=== PATIENT | female | born 1980 | race American Indian/Alaskan Native ===

== ENCOUNTER 2020-05-21 14:35 | Emergency (ER) | payer MEDICAID ==
[2020-05-21 15:37] LABS: Calcium 8.4 mg/dL (8.4-10.2)
[2020-05-21 15:38] LABS: Mean Corpuscular HGB Conc 33 % (30-34); Mean Corpuscular Volume 82 fl (79-97); Platelet Count 359 K/mm3 (140-440); Red Blood Count 1.57 M/mm3 (3.65-5.03); Red Cell Distribution Width 16.5 % (13.2-15.2)
[2020-05-21 15:49] LABS: Hematocrit 12.9 % (30.3-42.9); Hemoglobin 4.2 gm/dl (10.1-14.3)
[2020-05-21] MEDS ORDERED: SODIUM CHLORIDE 0.9% 1000 ML 2,000 ML ONE (20:23)
[2020-05-21] MEDS ORDERED: SODIUM CHLORIDE 0.9% 1000 ML 1,000 ML IV ONE ×2 (20:28)
[2020-05-21] MEDS ORDERED: SODIUM CHLORIDE 0.9% 500 ML 500 ML IV ONE (20:29)
--- NOTE | 2020-05-21 20:36 | Emergency Department Report ---
HPI - General Chief Complaint: Weakness Time Seen by Provider: 05/21/20 20:20 - HPI HPI: Room 7 The patient is a 39-year-old female presenting with a chief complaint of symptomatic anemia. The patient had liposuction performed 3 days ago at a surgical center by the plastic surgeon Dr. Gonzales. The patient states she has been feeling tired and dizzy since the surgery. Patient has 2 RADHA drains that have been draining blood. The patient and significant other states that the drains have each been changed approximate 3-4 times daily. There is been no history of fever. Patient followed up with her plastic surgeon yesterday and had blood drawn. The patient received a call today informing her that her H&H were low and that she needs to go to the nearest emergency department. ED Past Medical Hx - Past Medical History Previous Medical History?: Yes Additional medical history: lupus. RA. fibromyalgia - Surgical History Additional Surgical History: x 2. laproscopy (uterine). Liposuction - Family History Family history: no significant - Social History Smoking Status: Never Smoker Substance Use Type: None - Medications Home Medications: Home Medications Medication Instructions Recorded Confirmed Last Taken Type Albuterol Mdi (or & Nicu Only) 2 puff IH QID PRN #1 inhalation 03/20/16 Unknown Rx [ProAir HFA Inhaler] Fluticasone [Flonase] 1 spray NS QDAY #1 bottle 03/20/16 Unknown Rx guaiFENesin/CODEINE [Robitussin AC] 5 ml PO Q6H PRN #100 oral.liqd 03/20/16 Unknown Rx predniSONE [Deltasone] 20 mg PO QDAY #5 tab 03/20/16 Unknown Rx ED Review of Systems ROS: Stated complaint: LOW BLOOD SUGAR Other details as noted in HPI Constitutional: weakness. denies: fever Respiratory: no symptoms reported Endocrine: no symptoms reported Neurological: other (Dizziness) Physical Exam - Physical Exam Vital Signs: Vital Signs 05/21/20 20:20 Temperature 98.3 F Pulse Rate 132 H Respiratory 26 H Rate Blood Pressure 117/62 [Left] O2 Sat by Pulse 100 Oximetry Physical Exam: GENERAL: The patient is well-developed well-nourished female lying on stretcher not appearing to be in acute distress. [] HEENT: Normocephalic. Atraumatic. Extraocular motions are intact. Patient has moist mucous membranes. NECK: Supple. Trachea midline CHEST/LUNGS: Clear to auscultation. There is no respiratory distress noted. HEART/CARDIOVASCULAR: Regular. There is no tachycardia. There is no gallop rub or murmur. ABDOMEN: Abdomen is soft, with appropriate postop tenderness. The long lower abdominal surgical site is intact with evidence of dried blood at the suture sites. There are 2 large RADHA drain tubes inserted in the suprapubic region with 2 smaller catheters medially. Patient has normal bowel sounds. There is no abdominal distention. SKIN: There is no rash. There is no edema. There is no diaphoresis. NEURO: The patient is awake, alert, and oriented. The patient is cooperative. The patient has normal speech MUSCULOSKELETAL: There is no evidence of acute injury. ED Course Vital Signs 05/21/20 20:20 Temperature 98.3 F Pulse Rate 132 H Respiratory 26 H Rate Blood Pressure 117/62 [Left] O2 Sat by Pulse 100 Oximetry - Consultations Consultation #1: 05/21/20 20:40 Dr. Gonzales called 05/21/20 20:52 Case discussed. Will accept patient in transfer to [facility] Consultation #2: 05/21/20 20:52 [facility] called ED Medical Decision Making - Lab Data Result diagrams: 05/21/20 14:56 05/21/20 14:56 Critical care attestation.: If time is entered above; I have spent that time in minutes in the direct care of this critically ill patient, excluding procedure time. ED Disposition Clinical Impression: Symptomatic anemia, Post-op bleeding Disposition: [id number]/TX-[id number] ANOTHER TYPE HLTHCARE Is pt being admited?: No Does the pt Need Aspirin: No Condition: Fair Referrals: PRIMARY CARE, [Primary Care Provider] - 3-5 Days Time of Disposition: 21:12 (Awaiting transport)
[2020-05-22 05:14] VITALS: BP 156/83
== END 2020-05-22 05:28 | disposition other institution (70) ==
LOC: ED 14:35
DX: L76.22 Postprocedural hemorrhage of skin and subcutaneous tissue following other procedure (principal); D64.9 Anemia, unspecified; Z98.890 Other specified postprocedural states; Z79.899 Other long term (current) drug therapy; Z91.018 Allergy to other foods
CPT/HCPCS: 36415; 36430; 80048; 85027; 86850; 86900; 86901; 86920; 96360; 96361; 99285; J7030; J7040; P9016